=== PATIENT | female | born 1990 | race Caucasian/White ===

== ENCOUNTER 2018-05-01 19:55 | Inpatient (IN) | payer MEDICAID ==
[~2018-05-01] VITALS: Ht 167.6 cm; Wt 112.0 kg
[~2018-05-01 19:55] MED LIST: CHLO100T24 PO; DIVA500T69 PO; LITH300T3 PO; RISP3 PO
[2018-05-01] MEDS ORDERED: TRAZ-147 PO (20:15)
[2018-05-01 20:24] LABS: BASOPHILS % (AUTO) 0.6 % (0.0-2.0); EOSINOPHILS % (AUTO) 1.3 % (1.0-6.0); HEMATOCRIT 37.2 % (36-46); HEMOGLOBIN 12.4 g/dL (12.0-16.0); LYMPHOCYTES % (AUTO) 22.8 % (22.0-44.0); MEAN CORPUSCULAR HEMOGLOBIN 26.7 pg (26.0-34.0); MEAN CORPUSCULAR HGB CONC 33.3 G/dL (31.0-37.0); MEAN CORPUSCULAR VOLUME 80 fL (80-100); MONOCYTES # (AUTO) 0.8 K/uL (0.1-1.0); MONOCYTES % (AUTO) 9.4 % (2.0-9.0); NEUTROPHILS # (AUTO) 5.7 K/uL (1.8-7.7); NEUTROPHILS % (AUTO) 65.9 % (40.0-70.0); PLATELET COUNT (AUTO) 370 K/uL (150-450); RED BLOOD CELL COUNT(AUTO) 4.63 MIL/uL (4.00-5.20); RED CELL DISTRIBUTION WIDTH 14.8 % (11.5-14.5)
[2018-05-01 20:39] LABS: ANION GAP 9 mmol/L (8-16); CALCIUM, TOTAL 8.2 mg/dL (8.8-10.5); CARBON DIOXIDE 22 mmol/L (22-29); CHLORIDE 109 mmol/L (98-107); CREATININE 0.85 mg/dL (0.60-1.30); GLOMERULAR FILTR. RATE CALC > 60 mL/min (>60); GLUCOSE,RANDOM 91 mg/dL (70-110); POTASSIUM 3.8 mmol/L (3.5-5.1); SODIUM SERUM 140 mmol/L (136-145); UREA NITROGEN, BLOOD 10 mg/dL (7-18)
[2018-05-01 20:42] LABS: AMPHET/METH SCREEN,URINE NEGATIVE (NEGATIVE); BARBITURATE SCREEN, URINE NEGATIVE (NEGATIVE); BENZODIAZEPINES SCREEN,URINE NEGATIVE (NEGATIVE); CANNABINOID SCREEN,URINE NEGATIVE (NEGATIVE); COCAINE SCREEN,URINE NEGATIVE (NEGATIVE); METHADONE SCREEN, URINE NEGATIVE (NEGATIVE); OPIATE SCREEN,URINE NEGATIVE (NEGATIVE); PHENCYCLIDINE SCREEN,URINE NEGATIVE (NEGATIVE)
[2018-05-01 20:45] LABS: LITHIUM < 0.20 mmol/L (0.60-1.20)
[2018-05-01 20:47] LABS: ALANINE AMINOTRANSFERASE 36 U/L (12-78); ALBUMIN 3.2 g/dL (3.4-5.0); ALKALINE PHOSPHATASE 74 U/L (46-116); ASPARTATE AMINOTRANSFERASE 22 U/L (15-37); BILIRUBIN,TOTAL 0.2 mg/dL (0.1-1.0); VALPROIC ACID 3 mcg/mL (50-100)
[2018-05-01] MEDS ORDERED: HALOPERIDOL 5 MG TABLET PO ONE (21:00)
[2018-05-01] MEDS ORDERED: DiphenhydrAMINE HCL 25 MG CAPSULE PO ONE (21:00)
[2018-05-01] MEDS ORDERED: LORazepam 2 MG TABLET PO ONE (21:00)
[2018-05-01] MEDS ORDERED: ACETAMINOPHEN 500 MG TABLET PO ONE (23:45)
[2018-05-02 00:40] VITALS: BP 120/65
[2018-05-02] MEDS: LORazepam 2 MG TABLET PO PRN (03:20)
[2018-05-02] MEDS: QUEtiapine FUMARATE 100 MG TABLET PO PRN (03:42)
[2018-05-02] MEDS ORDERED: DiphenhydrAMINE HCL 50 MG/ML VIAL IM ONE ×3 (04:00→14:15)
[2018-05-02] MEDS ORDERED: HALOPERIDOL LACTATE 5 MG/ML VIAL IM ONE ×3 (04:00→14:15)
[2018-05-02] MEDS ORDERED: LORazepam 2 MG/ML VIAL ONE (07:28)
[2018-05-02] MEDS ORDERED: LORazepam 2 MG/ML VIAL IM ONE ×2 (07:30→14:15)
[2018-05-02] MEDS ORDERED: RisperiDONE 3 MG TABLET PO ONE (12:00)
[2018-05-02] MEDS: RisperiDONE 3 MG TABLET PO SCH (20:10)
[2018-05-02] MEDS: TraZODone HCL 100 MG TABLET PO SCH (20:10)
[2018-05-02] MEDS: ZOLPIDEM TARTRATE 10 MG TABLET PO PRN (21:00)
[2018-05-03] MEDS: QUEtiapine FUMARATE 100 MG TABLET PO PRN (03:01)
[2018-05-03] MEDS ORDERED: HALOPERIDOL LACTATE 5 MG/ML VIAL IM ONE (06:00)
[2018-05-03] MEDS ORDERED: DiphenhydrAMINE HCL 50 MG/ML VIAL IM ONE (06:00)
[2018-05-03] MEDS ORDERED: LORazepam 2 MG/ML VIAL IM ONE (06:00)
[2018-05-03 06:01] VITALS: BP 123/98
[2018-05-03 08:17] VITALS: BP 100/72
[2018-05-03 09:12] LABS: CHOL/HDL RATIO 2.7 (3.9-5.7); FREE T4 (FREE THYROXINE) 1.08 ng/dL (0.76-1.46); THYROID STIMULATING HORMONE 0.91 uIU/mL (0.36-3.74)
[2018-05-03] MEDS ORDERED: LOPERAMIDE HCL 2 MG CAPSULE PO PRN (15:00)
[2018-05-03] MEDS ORDERED: MAG HYDROX/AL HYDROX/SIMETH ES 30 ML SUSPENSION UDCUP PO PRN (15:00)
[2018-05-03] MEDS ORDERED: TUBERCULIN, PURIFIED PROTEIN DERIVATIVE 5 TU/0.1 ML SYG ID ONE (15:00)
[2018-05-03] MEDS ORDERED: PROMETHAZINE HCL 25 MG TABLET PO PRN (15:00)
[2018-05-03] MEDS ORDERED: GuaiFENesin/D-METHORPHAN [SUGAR-FREE] 200-20MG/10 ML SYRUP UDCUP PO PRN (15:00)
[2018-05-03] MEDS ORDERED: MAGNESIUM HYDROXIDE SUSPENSION 30 ML UDCUP PO PRN (15:00)
[2018-05-03] MEDS ORDERED: RisperiDONE 1 MG TABLET PO PRN (15:30)
[2018-05-03] MEDS: LORazepam 2 MG TABLET PO PRN (15:47)
[2018-05-03 16:00] VITALS: BP 121/74
[2018-05-03] MEDS: THIAMINE HCL 100 MG TABLET PO SCH (16:17)
[2018-05-03] MEDS: DIVALPROEX SODIUM 500 MG ER TABLET PO SCH (20:32)
[2018-05-03] MEDS: TraZODone HCL 100 MG TABLET PO SCH (20:32)
[2018-05-03] MEDS: LITHIUM CARBONATE 300 MG CAPSULE PO SCH (20:33)
[2018-05-03] MEDS: RisperiDONE 3 MG TABLET PO SCH (20:33)
[2018-05-03] MEDS: PRAZOSIN HCL 1 MG CAPSULE PO SCH (20:33)
[2018-05-03] MEDS: ZOLPIDEM TARTRATE 10 MG TABLET PO PRN (21:37)
[2018-05-04 03:31] VITALS: BP 120/70
[2018-05-04] MEDS: ACETAMINOPHEN 325 MG TABLET PO PRN (04:11)
[2018-05-04 08:02] VITALS: BP 134/74
[2018-05-04] MEDS: THIAMINE HCL 100 MG TABLET PO SCH ×2 (08:02→16:20)
[2018-05-04] MEDS: MULTIVITAMINS WITH MINERALS, THERAPEUTIC TABLET PO SCH (08:02)
[2018-05-04] MEDS: NALTREXONE HCL 50 MG TABLET PO SCH (08:02)
[2018-05-04] MEDS: FOLIC ACID 1 MG TABLET PO SCH (08:02)
[2018-05-04] MEDS: LORazepam 2 MG TABLET PO PRN ×2 (09:15→13:18)
[2018-05-04 16:04] VITALS: BP 115/79
[2018-05-04] MEDS: LORazepam 1 MG TABLET PO PRN (16:20)
[2018-05-04] MEDS: HydrOXYzine PAMOATE 50 MG CAPSULE PO PRN (16:20)
[2018-05-04 20:16] VITALS: BP 124/72
[2018-05-04] MEDS: LITHIUM CARBONATE 300 MG CAPSULE PO SCH (20:18)
[2018-05-04] MEDS: DIVALPROEX SODIUM 500 MG ER TABLET PO SCH (20:19)
[2018-05-04] MEDS: RisperiDONE 3 MG TABLET PO SCH (20:19)
[2018-05-04] MEDS: TraZODone HCL 100 MG TABLET PO SCH (20:19)
[2018-05-04] MEDS: PRAZOSIN HCL 1 MG CAPSULE PO SCH (20:19)
[2018-05-04] MEDS: ZOLPIDEM TARTRATE 10 MG TABLET PO PRN (22:53)
[2018-05-05] MEDS ORDERED: LORazepam 2 MG/ML VIAL IM ONE (03:30)
[2018-05-05] MEDS ORDERED: DiphenhydrAMINE HCL 50 MG/ML VIAL IM ONE (03:30)
[2018-05-05] MEDS ORDERED: HALOPERIDOL LACTATE 5 MG/ML VIAL IM ONE (03:30)
[2018-05-05 06:30] VITALS: BP 106/72
[2018-05-05 08:06] VITALS: BP 136/83
[2018-05-05 08:14] LABS: LITHIUM 0.44 mmol/L (0.60-1.20)
[2018-05-05] MEDS: FOLIC ACID 1 MG TABLET PO SCH (09:01)
[2018-05-05] MEDS: NALTREXONE HCL 50 MG TABLET PO SCH (09:01)
[2018-05-05] MEDS: MULTIVITAMINS WITH MINERALS, THERAPEUTIC TABLET PO SCH (09:01)
[2018-05-05] MEDS: THIAMINE HCL 100 MG TABLET PO SCH ×2 (09:01→16:08)
[2018-05-05 16:01] VITALS: BP 118/92
[2018-05-05] MEDS: LORazepam 1 MG TABLET PO PRN (16:08)
[2018-05-05] MEDS: HydrOXYzine PAMOATE 50 MG CAPSULE PO PRN (16:08)
[2018-05-05] MEDS: DIVALPROEX SODIUM 500 MG ER TABLET PO SCH (20:02)
[2018-05-05] MEDS: RisperiDONE 3 MG TABLET PO SCH (20:02)
[2018-05-05] MEDS: TraZODone HCL 100 MG TABLET PO SCH (20:02)
[2018-05-05] MEDS: PRAZOSIN HCL 1 MG CAPSULE PO SCH (20:03)
[2018-05-05] MEDS: LITHIUM CARBONATE 600 MG CAPSULE PO SCH (20:03)
[2018-05-06] MEDS: ZOLPIDEM TARTRATE 10 MG TABLET PO PRN ×2 (00:16→20:18)
[2018-05-06 00:37] VITALS: BP 115/71
[2018-05-06] MEDS: MULTIVITAMINS WITH MINERALS, THERAPEUTIC TABLET PO SCH (08:12)
[2018-05-06] MEDS: THIAMINE HCL 100 MG TABLET PO SCH ×2 (08:12→16:09)
[2018-05-06] MEDS: NALTREXONE HCL 50 MG TABLET PO SCH (08:12)
[2018-05-06] MEDS: FOLIC ACID 1 MG TABLET PO SCH (08:12)
[2018-05-06] MEDS: HydrOXYzine PAMOATE 50 MG CAPSULE PO PRN (08:15)
[2018-05-06] MEDS: LORazepam 1 MG TABLET PO PRN ×2 (08:50→16:09)
[2018-05-06 09:10] VITALS: BP 122/60
[2018-05-06] MEDS: ACETAMINOPHEN 325 MG TABLET PO PRN (13:35)
[2018-05-06] MEDS ORDERED: LITH600 PO (16:14)
[2018-05-06] MEDS ORDERED: TRAZ-147 PO (16:14)
[2018-05-06] MEDS ORDERED: NALT50TA PO (16:14)
[2018-05-06] MEDS ORDERED: PRAZ1 PO (16:14)
[2018-05-06] MEDS ORDERED: RISP3 PO (16:14)
[2018-05-06] MEDS ORDERED: DIVA500T52 PO (16:14)
[2018-05-06 16:20] VITALS: BP 123/59
[2018-05-06] MEDS ORDERED: TUBERCULIN, PURIFIED PROTEIN DERIVATIVE 5 TU/0.1 ML SYG ID ONE (19:45)
[2018-05-06] MEDS: LITHIUM CARBONATE 600 MG CAPSULE PO SCH (20:18)
[2018-05-06] MEDS: PRAZOSIN HCL 1 MG CAPSULE PO SCH (20:18)
[2018-05-06] MEDS: DIVALPROEX SODIUM 500 MG ER TABLET PO SCH (20:18)
[2018-05-06] MEDS: TraZODone HCL 100 MG TABLET PO SCH (20:18)
[2018-05-06] MEDS: RisperiDONE 3 MG TABLET PO SCH (20:18)
[2018-05-06] MEDS ORDERED: BISACODYL 5 MG EC TABLET PO PRN (23:15)
[2018-05-06] MEDS ORDERED: DOCUSATE SODIUM 250 MG CAPSULE PO PRN (23:15)
[2018-05-06] MEDS ORDERED: LACTULOSE 20 GM/30 ML SOLUTION UDCUP PO PRN (23:15)
[2018-05-07 04:18] VITALS: BP 132/77
[2018-05-07 08:00] VITALS: BP 119/65
[2018-05-07] MEDS: THIAMINE HCL 100 MG TABLET PO SCH (09:45)
[2018-05-07] MEDS: MULTIVITAMINS WITH MINERALS, THERAPEUTIC TABLET PO SCH (09:45)
[2018-05-07] MEDS: FOLIC ACID 1 MG TABLET PO SCH (09:45)
[2018-05-07] MEDS: NALTREXONE HCL 50 MG TABLET PO SCH (09:45)
== END 2018-05-07 10:30 | disposition home or self-care (01) | DRG 750 ==
LOC: EMS 19:56 → B3A 22:00
PROVIDERS: ADMIT Psychiatry & Neurology Child & Adolescent Psychiatry; ATTEND Psychiatry & Neurology Psychiatry
DX: F25.1 Schizoaffective disorder, depressive type (principal); R45.851 Suicidal ideations; E11.9 Type 2 diabetes mellitus without complications; E66.9 Obesity, unspecified; F12.90 Cannabis use, unspecified, uncomplicated; F31.9 Bipolar disorder, unspecified; F41.9 Anxiety disorder, unspecified; Z91.19 Patient's noncompliance with other medical treatment and regimen; Z79.899 Other long term (current) drug therapy
CPT/HCPCS: 83036; 84439; 84443; 99285; G0480; J1200; J1630; J2060

== ENCOUNTER 2020-11-21 17:45 | Inpatient (IN) | payer MEDICAID, OTHER ==
[~2020-11-21] VITALS: Ht 167.6 cm; Wt 124.3 kg
[~2020-11-21 17:45] MED LIST changes: -CHLO100T24 PO; -DIVA500T69 PO; +DSS100 PO; +LAMO25TA66 PO; -LITH300T3 PO; +OMEP20 PO; +OXCA300T57 PO; +PROP10TA73 PO; -RISP3 PO; +TOPI100T37 PO
[2020-11-21] MEDS ORDERED: HALOPERIDOL LACTATE 5 MG/ML VIAL IM ONE (20:45)
[2020-11-21] MEDS ORDERED: DiphenhydrAMINE HCL 50 MG/ML VIAL IM ONE (20:45)
[2020-11-21] MEDS ORDERED: LORazepam 2 MG/ML VIAL IM ONE (20:45)
[2020-11-21] MEDS ORDERED: CHLO100T31 PO (21:08)
[2020-11-22] MEDS ORDERED: LORazepam 2 MG/ML VIAL IM ONE ×2 (01:00→04:00)
[2020-11-22] MEDS ORDERED: HALOPERIDOL LACTATE 5 MG/ML VIAL IM ONE (01:00)
[2020-11-22 01:45] LABS: AMPHET/METH SCREEN,URINE NEGATIVE (NEGATIVE); BARBITURATE SCREEN, URINE NEGATIVE (NEGATIVE); BENZODIAZEPINES SCREEN,URINE POSITIVE (NEGATIVE); CANNABINOID SCREEN,URINE POSITIVE (NEGATIVE); COCAINE SCREEN,URINE NEGATIVE (NEGATIVE); METHADONE SCREEN, URINE NEGATIVE (NEGATIVE); OPIATE SCREEN,URINE NEGATIVE (NEGATIVE)
[2020-11-22 01:50] LABS: PHENCYCLIDINE SCREEN,URINE NEGATIVE (NEGATIVE)
[2020-11-22 02:54] LABS: COVID AG,FIA SOURCE NASOPHARYNGEAL
[2020-11-22 03:06] LABS: APPEARANCE,URINE CLEAR (CLEAR); BILIRUBIN,URINE NEGATIVE (NEGATIVE); GLUCOSE, URINE (UA) NEGATIVE (NEGATIVE); KETONES,URINE NEGATIVE (NEGATIVE); LEUKOCYTE ESTERASE ,URINE NEGATIVE (NEGATIVE); NITRATE,URINE NEGATIVE (NEGATIVE); OCCULT BLOOD,URINE NEGATIVE (NEGATIVE); PH,URINE 6.5 (5.0-8.0); PROTEIN,URINE NEGATIVE (NEGATIVE); UROBILINOGEN,URINE 0.2 mg/dL (<=1.0)
[2020-11-22] MEDS ORDERED: DiphenhydrAMINE HCL 50 MG/ML VIAL IM ONE (04:00)
[2020-11-22] MEDS: OLANZapine 5 MG RAPDIS TABLET PO PRN ×2 (04:05→09:00)
[2020-11-22] MEDS: LORazepam 2 MG TABLET PO PRN (09:00)
[2020-11-22 12:37] VITALS: BP 127/74
[2020-11-22] MEDS ORDERED: DOCU-275 PO (13:06)
[2020-11-22] MEDS ORDERED: PNEUMOCOCCAL VACCINE POLYVALENT 0.5 ML VIAL [PPSV23] IM ONE (13:15)
[2020-11-22] MEDS ORDERED: ALBUTEROL SULFATE HFA 90 MCG/PUFF 8 GM INHALER IH PRN (15:15)
[2020-11-22] MEDS ORDERED: ACETAMINOPHEN 325 MG TABLET PO PRN (15:15)
[2020-11-22] MEDS ORDERED: IBUPROFEN 400 MG TABLET PO PRN (15:15)
[2020-11-22] MEDS ORDERED: GuaiFENesin/D-METHORPHAN [SUGAR-FREE] 200-20MG/10 ML SYRUP UDCUP PO PRN ×2 (15:15→16:15)
[2020-11-22] MEDS ORDERED: PETROLATUM,WHITE 28 GM JELLY TP PRN (15:15)
[2020-11-22] MEDS ORDERED: MAGNESIUM HYDROXIDE SUSPENSION 30 ML UDCUP PO PRN ×2 (15:15→16:15)
[2020-11-22] MEDS ORDERED: ONDANSETRON HCL 4 MG TABLET PO PRN (15:15)
[2020-11-22] MEDS ORDERED: DOCUSATE SODIUM 100 MG CAPSULE PO PRN (15:15)
[2020-11-22] MEDS ORDERED: CloNIDine HCL 0.1 MG TABLET PO PRN (15:15)
[2020-11-22] MEDS ORDERED: NICOTINE 14 MG/24 HOUR PATCH TD PRN (15:15)
[2020-11-22] MEDS ORDERED: MAG HYDROX/AL HYDROX/SIMETH ES 30 ML SUSPENSION UDCUP PO PRN ×2 (15:15→16:15)
[2020-11-22] MEDS ORDERED: LOPERAMIDE HCL 2 MG CAPSULE PO PRN ×2 (15:15→16:15)
[2020-11-22 16:01] VITALS: BP 128/75
[2020-11-22] MEDS ORDERED: TUBERCULIN, PURIFIED PROTEIN DERIVATIVE 5 TU/0.1 ML SYRINGE ID ONE (16:15)
[2020-11-22] MEDS ORDERED: PALIPERIDONE PALMITATE 234 MG/1.5 ML SYRINGE IM ONE (16:15)
[2020-11-22] MEDS ORDERED: HydrOXYzine PAMOATE 50 MG CAPSULE PO PRN (16:15)
[2020-11-22] MEDS ORDERED: PROMETHAZINE HCL 25 MG TABLET PO PRN (16:15)
[2020-11-22] MEDS: TOPIRAMATE 100 MG TABLET PO SCH ×2 (17:00→17:23)
[2020-11-22] MEDS: LamoTRIgine 25 MG TABLET PO SCH ×2 (17:00→17:23)
[2020-11-22] MEDS: THIAMINE 100 MG TABLET PO SCH ×2 (17:00→17:23)
[2020-11-22] MEDS: PROPRANOLOL HCL 10 MG TABLET PO SCH ×2 (17:00→17:24)
[2020-11-22] MEDS: OXcarbazepine 300 MG TABLET PO SCH (17:23)
[2020-11-22] MEDS: ACETAMINOPHEN 325 MG TABLET PO PRN (19:50)
[2020-11-22] MEDS: OLANZapine 5 MG RAPDIS TABLET PO SCH (20:16)
[2020-11-23 02:24] VITALS: BP 140/85
[2020-11-23] MEDS: LORazepam 2 MG TABLET PO PRN ×2 (05:27→10:42)
[2020-11-23 08:26] VITALS: BP 136/86
[2020-11-23] MEDS: OXcarbazepine 300 MG TABLET PO SCH ×2 (08:48→16:49)
[2020-11-23] MEDS: THIAMINE 100 MG TABLET PO SCH ×2 (08:48→16:53)
[2020-11-23] MEDS: OMEGA-3/DHA/EPA/FISH OIL 1,000 MG CAPSULE PO SCH (08:48)
[2020-11-23] MEDS: LamoTRIgine 25 MG TABLET PO SCH ×2 (08:49→16:49)
[2020-11-23] MEDS: NALTREXONE HCL 50 MG TABLET PO SCH (08:49)
[2020-11-23] MEDS: MULTIVITAMINS WITH MINERALS, THERAPEUTIC TABLET PO SCH (08:49)
[2020-11-23] MEDS: TOPIRAMATE 100 MG TABLET PO SCH ×2 (08:49→16:54)
[2020-11-23] MEDS: PROPRANOLOL HCL 10 MG TABLET PO SCH ×3 (08:49→16:53)
[2020-11-23] MEDS: FOLIC ACID 1 MG TABLET PO SCH (08:51)
[2020-11-23 16:52] VITALS: BP 112/69
[2020-11-23] MEDS: OLANZapine 5 MG RAPDIS TABLET PO SCH (20:06)
[2020-11-23] MEDS: ChlorproMAZINE HCL 100 MG TABLET PO SCH (20:06)
[2020-11-24 00:24] VITALS: BP 102/69
[2020-11-24] MEDS: LORazepam 2 MG TABLET PO PRN ×3 (00:48→22:50)
[2020-11-24] MEDS: ZOLPIDEM TARTRATE 10 MG TABLET PO PRN (00:48)
[2020-11-24 09:14] VITALS: BP 100/72
[2020-11-24] MEDS: ChlorproMAZINE HCL 25 MG TABLET PO SCH ×2 (09:33→16:28)
[2020-11-24] MEDS: TOPIRAMATE 100 MG TABLET PO SCH ×2 (09:33→16:33)
[2020-11-24] MEDS: NALTREXONE HCL 50 MG TABLET PO SCH (09:33)
[2020-11-24] MEDS: MULTIVITAMINS WITH MINERALS, THERAPEUTIC TABLET PO SCH (09:33)
[2020-11-24] MEDS: OMEGA-3/DHA/EPA/FISH OIL 1,000 MG CAPSULE PO SCH (09:34)
[2020-11-24] MEDS: PROPRANOLOL HCL 10 MG TABLET PO SCH ×3 (09:34→16:33)
[2020-11-24] MEDS: OXcarbazepine 300 MG TABLET PO SCH ×2 (09:34→16:28)
[2020-11-24] MEDS: FOLIC ACID 1 MG TABLET PO SCH (09:34)
[2020-11-24] MEDS: THIAMINE 100 MG TABLET PO SCH ×2 (09:34→16:28)
[2020-11-24] MEDS: LamoTRIgine 25 MG TABLET PO SCH ×2 (10:14→16:31)
[2020-11-24 16:09] VITALS: BP 125/78
[2020-11-24] MEDS: ACETAMINOPHEN 325 MG TABLET PO PRN (19:59)
[2020-11-24] MEDS: ChlorproMAZINE HCL 100 MG TABLET PO SCH (20:00)
[2020-11-24] MEDS: OLANZapine 5 MG RAPDIS TABLET PO SCH (21:00)
[2020-11-25 00:34] VITALS: BP 120/72
[2020-11-25] MEDS: ZOLPIDEM TARTRATE 10 MG TABLET PO PRN (01:30)
[2020-11-25] MEDS: LORazepam 2 MG TABLET PO PRN ×3 (03:00→16:01)
[2020-11-25 05:35] VITALS: BP 118/70
[2020-11-25] MEDS: ACETAMINOPHEN 325 MG TABLET PO PRN (05:48)
[2020-11-25 08:14] VITALS: BP 144/94
[2020-11-25] MEDS: OXcarbazepine 300 MG TABLET PO SCH ×2 (08:38→16:00)
[2020-11-25] MEDS: LamoTRIgine 25 MG TABLET PO SCH ×2 (08:39→16:01)
[2020-11-25] MEDS: OMEGA-3/DHA/EPA/FISH OIL 1,000 MG CAPSULE PO SCH (08:39)
[2020-11-25] MEDS: THIAMINE 100 MG TABLET PO SCH ×2 (08:39→16:01)
[2020-11-25] MEDS: MULTIVITAMINS WITH MINERALS, THERAPEUTIC TABLET PO SCH (08:39)
[2020-11-25] MEDS: NALTREXONE HCL 50 MG TABLET PO SCH (08:39)
[2020-11-25] MEDS: FOLIC ACID 1 MG TABLET PO SCH (08:39)
[2020-11-25] MEDS: ChlorproMAZINE HCL 25 MG TABLET PO SCH ×2 (08:40→17:00)
[2020-11-25] MEDS: PROPRANOLOL HCL 10 MG TABLET PO SCH ×3 (08:45→16:01)
[2020-11-25] MEDS: TOPIRAMATE 100 MG TABLET PO SCH ×2 (08:46→16:01)
[2020-11-25] MEDS: IBUPROFEN 400 MG TABLET PO SCH ×2 (12:34→16:01)
[2020-11-25] MEDS: OLANZapine 5 MG RAPDIS TABLET PO PRN (16:02)
[2020-11-25 16:35] VITALS: BP 119/70
[2020-11-25] MEDS: ChlorproMAZINE HCL 100 MG TABLET PO SCH (20:05)
[2020-11-25] MEDS: OLANZapine 5 MG RAPDIS TABLET PO SCH (21:00)
[2020-11-25 21:24] VITALS: BP 118/73
[2020-11-26 01:04] VITALS: BP 111/73
[2020-11-26] MEDS: LORazepam 2 MG TABLET PO PRN ×2 (01:53→08:16)
[2020-11-26] MEDS ORDERED: TOPI100T37 PO (07:59)
[2020-11-26] MEDS ORDERED: LAMO25TA66 PO (07:59)
[2020-11-26] MEDS ORDERED: OLAN5TAB30 PO (07:59)
[2020-11-26] MEDS ORDERED: NALT50TA PO (07:59)
[2020-11-26] MEDS ORDERED: OMEG-135 PO (07:59)
[2020-11-26] MEDS ORDERED: PROP10TA72 PO (07:59)
[2020-11-26] MEDS ORDERED: OXCA300T57 PO (07:59)
[2020-11-26] MEDS: MULTIVITAMINS WITH MINERALS, THERAPEUTIC TABLET PO SCH (08:14)
[2020-11-26] MEDS: IBUPROFEN 400 MG TABLET PO SCH (08:14)
[2020-11-26] MEDS: THIAMINE 100 MG TABLET PO SCH (08:14)
[2020-11-26] MEDS: OMEGA-3/DHA/EPA/FISH OIL 1,000 MG CAPSULE PO SCH (08:14)
[2020-11-26] MEDS: FOLIC ACID 1 MG TABLET PO SCH (08:14)
[2020-11-26] MEDS: LamoTRIgine 25 MG TABLET PO SCH (08:15)
[2020-11-26] MEDS: OXcarbazepine 300 MG TABLET PO SCH (08:16)
[2020-11-26] MEDS: ChlorproMAZINE HCL 25 MG TABLET PO SCH (08:17)
[2020-11-26 08:19] VITALS: BP 123/75
[2020-11-26] MEDS: PROPRANOLOL HCL 10 MG TABLET PO SCH (08:19)
[2020-11-26] MEDS: TOPIRAMATE 100 MG TABLET PO SCH (08:20)
[2020-11-26] MEDS: NALTREXONE HCL 50 MG TABLET PO SCH (08:20)
[2020-11-26] MEDS ORDERED: PALIPERIDONE PALMITATE 156 MG/ML SYRINGE IM ONE (09:00)
[2020-11-26] MEDS ORDERED: CHLO25TA47 PO (10:25)
[2020-11-26] MEDS ORDERED: NALT50TA6 PO (10:26)
[2020-11-26] MEDS ORDERED: OLAN5TAB40 PO (10:27)
== END 2020-11-26 10:50 | disposition home or self-care (01) | DRG 750 ==
LOC: EMS 17:45 → B3A 11-22 11:09
PROVIDERS: ADMIT Psychiatry & Neurology Psychiatry; ATTEND Psychiatry & Neurology Psychiatry
DX: F25.0 Schizoaffective disorder, bipolar type (principal); E66.9 Obesity, unspecified; I10 Essential (primary) hypertension; J45.909 Unspecified asthma, uncomplicated; K21.9 Gastro-esophageal reflux disease without esophagitis; R45.851 Suicidal ideations; Z20.828 Contact with and (suspected) exposure to other viral communicable diseases; Z78.1 Physical restraint status; Z79.899 Other long term (current) drug therapy; Z91.5 Personal history of self-harm; Z68.41 Body mass index [BMI] 40.0-44.9, adult
CPT/HCPCS: 87426; 99291; J1200; J1630; J2060

== ENCOUNTER 2020-11-27 18:24 | Inpatient (IN) | payer MEDICAID, OTHER ==
[~2020-11-27] VITALS: Ht 170.2 cm; Wt 123.4 kg
[~2020-11-27 18:24] MED LIST changes: +CHLO100T31 PO; +CHLO25TA47 PO; -DSS100 PO; +NALT50TA6 PO; +OLAN5TAB40 PO; -OMEP20 PO; -PROP10TA73 PO
[2020-11-27] MEDS ORDERED: HALOPERIDOL LACTATE 5 MG/ML VIAL IM ONE ×2 (20:15→22:30)
[2020-11-27] MEDS ORDERED: LORazepam 2 MG/ML VIAL IM ONE ×2 (20:15→22:30)
[2020-11-27] MEDS ORDERED: DiphenhydrAMINE HCL 50 MG/ML VIAL IM ONE ×2 (20:15→22:30)
[2020-11-27 20:33] LABS: BASOPHILS % (AUTO) 0.5 % (0.0-2.0); HEMATOCRIT 38.2 % (36-46); HEMOGLOBIN 12.5 g/dL (12.0-16.0); LYMPHOCYTES # (AUTO) 1.8 K/uL (1.0-4.8); LYMPHOCYTES % (AUTO) 24.4 % (22.0-44.0); MEAN CORPUSCULAR HEMOGLOBIN 26.4 pg (26.0-34.0); MEAN CORPUSCULAR HGB CONC 32.7 G/dL (31.0-37.0); MEAN CORPUSCULAR VOLUME 81 fL (80-100); MONOCYTES # (AUTO) 0.6 K/uL (0.1-1.0); MONOCYTES % (AUTO) 8.5 % (2.0-9.0); NEUTROPHILS # (AUTO) 4.8 K/uL (1.8-7.7); NEUTROPHILS % (AUTO) 65.6 % (40.0-70.0); PLATELET COUNT (AUTO) 322 K/uL (150-450); RED BLOOD CELL COUNT(AUTO) 4.72 MIL/uL (4.00-5.20); RED CELL DISTRIBUTION WIDTH 15.8 % (11.5-14.5)
[2020-11-27 20:40] LABS: ANION GAP 11 mmol/L (8-16); CALCIUM, TOTAL 8.6 mg/dL (8.8-10.5); CARBON DIOXIDE 21 mmol/L (22-29); CHLORIDE 104 mmol/L (98-107); CREATININE 0.86 mg/dL (0.60-1.30); GLOMERULAR FILTR. RATE CALC > 60 mL/min (>60); GLUCOSE,RANDOM 119 mg/dL (70-110); POTASSIUM 3.7 mmol/L (3.5-5.1); SODIUM SERUM 136 mmol/L (136-145); UREA NITROGEN, BLOOD 10 mg/dL (7-18)
[2020-11-27 20:53] LABS: ALANINE AMINOTRANSFERASE 46 U/L (12-78); ALBUMIN 3.5 g/dL (3.4-5.0); ALKALINE PHOSPHATASE 65 U/L (46-116); ASPARTATE AMINOTRANSFERASE 27 U/L (15-37); BILIRUBIN,TOTAL 0.3 mg/dL (0.1-1.0); HCG,QUANTITATIVE < 1 mIU/mL (0-6); TOTAL PROTEIN, SERUM 7.4 g/dL (6.4-8.2)
[2020-11-27] MEDS ORDERED: OLANZapine 5 MG RAPDIS TABLET PO PRN (21:30)
[2020-11-27 23:38] LABS: COVID AG,FIA SOURCE NASOPHARYNGEAL
[2020-11-28 01:52] VITALS: BP 110/67
[2020-11-28] MEDS ORDERED: INFLUENZA VIRUS VACCINE QVS 2020-21 (6MO+)/PF 60 MCG/0.5 ML SYRINGE IM ONE (02:45)
[2020-11-28] MEDS ORDERED: PNEUMOCOCCAL VACCINE POLYVALENT 0.5 ML VIAL [PPSV23] IM ONE (02:45)
[2020-11-28] MEDS ORDERED: DiphenhydrAMINE HCL 50 MG/ML VIAL IM ONE (05:00)
[2020-11-28] MEDS ORDERED: HALOPERIDOL LACTATE 5 MG/ML VIAL IM ONE (05:00)
[2020-11-28] MEDS ORDERED: LORazepam 2 MG/ML VIAL IM ONE (05:00)
[2020-11-28] MEDS ORDERED: TOPIRAMATE 100 MG TABLET PO SCH (09:00)
[2020-11-28] MEDS ORDERED: OXcarbazepine 300 MG TABLET PO SCH (09:00)
[2020-11-28] MEDS ORDERED: LamoTRIgine 25 MG TABLET PO SCH (09:00)
[2020-11-28] MEDS ORDERED: MAG HYDROX/AL HYDROX/SIMETH ES 30 ML SUSPENSION UDCUP PO PRN (09:00)
[2020-11-28] MEDS ORDERED: PROMETHAZINE HCL 25 MG TABLET PO PRN (09:00)
[2020-11-28] MEDS ORDERED: MAGNESIUM HYDROXIDE SUSPENSION 30 ML UDCUP PO PRN (09:00)
[2020-11-28] MEDS ORDERED: LOPERAMIDE HCL 2 MG CAPSULE PO PRN (09:00)
[2020-11-28] MEDS ORDERED: GuaiFENesin/D-METHORPHAN [SUGAR-FREE] 200-20MG/10 ML SYRUP UDCUP PO PRN (09:00)
[2020-11-28] MEDS: NALTREXONE HCL 50 MG TABLET PO SCH (09:24)
[2020-11-28] MEDS: OMEGA-3/DHA/EPA/FISH OIL 1,000 MG CAPSULE PO SCH (09:24)
[2020-11-28] MEDS: MULTIVITAMINS WITH MINERALS, THERAPEUTIC TABLET PO SCH (09:24)
[2020-11-28] MEDS: FOLIC ACID 1 MG TABLET PO SCH (09:24)
[2020-11-28] MEDS: THIAMINE 100 MG TABLET PO SCH ×2 (09:24→16:15)
[2020-11-28] MEDS: LORazepam 2 MG TABLET PO PRN ×2 (09:52→17:56)
[2020-11-28 12:45] VITALS: BP 118/82
[2020-11-28 16:07] VITALS: BP 124/80
[2020-11-28] MEDS: CarBAMazepine 200 MG TABLET PO SCH (16:15)
[2020-11-28] MEDS: HydrOXYzine PAMOATE 50 MG CAPSULE PO PRN (17:56)
[2020-11-28] MEDS: ZOLPIDEM TARTRATE 10 MG TABLET PO PRN (20:35)
[2020-11-28] MEDS: OLANZapine 5 MG RAPDIS TABLET PO SCH (20:36)
[2020-11-28] MEDS ORDERED: OLANZapine 5 MG RAPDIS TABLET PO SCH (21:00)
[2020-11-29 00:20] VITALS: BP 122/76
[2020-11-29] MEDS: LORazepam 2 MG TABLET PO PRN ×3 (00:56→16:20)
[2020-11-29] MEDS: HydrOXYzine PAMOATE 50 MG CAPSULE PO PRN ×2 (00:56→20:10)
[2020-11-29] MEDS: OMEGA-3/DHA/EPA/FISH OIL 1,000 MG CAPSULE PO SCH (08:04)
[2020-11-29] MEDS: MULTIVITAMINS WITH MINERALS, THERAPEUTIC TABLET PO SCH (08:04)
[2020-11-29] MEDS: THIAMINE 100 MG TABLET PO SCH ×2 (08:04→16:01)
[2020-11-29] MEDS: FOLIC ACID 1 MG TABLET PO SCH (08:04)
[2020-11-29 08:05] VITALS: BP 117/67
[2020-11-29] MEDS: ACETAMINOPHEN 325 MG TABLET PO PRN ×2 (08:12→20:11)
[2020-11-29] MEDS: OLANZapine 5 MG RAPDIS TABLET PO SCH ×2 (08:13→12:40)
[2020-11-29] MEDS: NALTREXONE HCL 50 MG TABLET PO SCH (08:13)
[2020-11-29] MEDS: CarBAMazepine 200 MG TABLET PO SCH ×4 (09:00→16:01)
[2020-11-29] MEDS ORDERED: FLUoxetine HCL 20 MG CAPSULE PO SCH (09:00)
[2020-11-29] MEDS ORDERED: OMEG-135 PO (14:37)
[2020-11-29] MEDS ORDERED: PALI117D IM (14:37)
[2020-11-29] MEDS ORDERED: NALT50TA PO (14:37)
[2020-11-29] MEDS ORDERED: CARB200T6 PO (14:37)
[2020-11-29 16:06] VITALS: BP 120/65
[2020-11-29 17:47] LABS: APPEARANCE,URINE CLEAR (CLEAR); BILIRUBIN,URINE NEGATIVE (NEGATIVE); GLUCOSE, URINE (UA) NEGATIVE (NEGATIVE); KETONES,URINE NEGATIVE (NEGATIVE); LEUKOCYTE ESTERASE ,URINE NEGATIVE (NEGATIVE); NITRATE,URINE NEGATIVE (NEGATIVE); OCCULT BLOOD,URINE NEGATIVE (NEGATIVE); PROTEIN,URINE NEGATIVE (NEGATIVE); UROBILINOGEN,URINE 0.2 mg/dL (<=1.0)
[2020-11-30] MEDS: LORazepam 2 MG TABLET PO PRN (01:42)
[2020-11-30] MEDS: ZOLPIDEM TARTRATE 10 MG TABLET PO PRN (01:42)
[2020-11-30 01:45] VITALS: BP 115/67
[2020-11-30] MEDS: FOLIC ACID 1 MG TABLET PO SCH (08:19)
[2020-11-30] MEDS: CarBAMazepine 200 MG TABLET PO SCH (08:19)
[2020-11-30] MEDS: OMEGA-3/DHA/EPA/FISH OIL 1,000 MG CAPSULE PO SCH (08:19)
[2020-11-30] MEDS: MULTIVITAMINS WITH MINERALS, THERAPEUTIC TABLET PO SCH (08:19)
[2020-11-30] MEDS: THIAMINE 100 MG TABLET PO SCH (08:19)
[2020-11-30] MEDS: NALTREXONE HCL 50 MG TABLET PO SCH (08:19)
[2020-11-30 08:29] VITALS: BP 111/78
== END 2020-11-30 11:00 | disposition home or self-care (01) | DRG 750 ==
LOC: EMS 18:24 → B3A 21:28 → UNDOADMIN 21:28
PROVIDERS: ADMIT Psychiatry & Neurology Psychiatry; ATTEND Psychiatry & Neurology Psychiatry
DX: F25.9 Schizoaffective disorder, unspecified (principal); R45.851 Suicidal ideations; I10 Essential (primary) hypertension; J45.909 Unspecified asthma, uncomplicated; K21.9 Gastro-esophageal reflux disease without esophagitis; G43.909 Migraine, unspecified, not intractable, without status migrainosus; Z88.8 Allergy status to other drugs, medicaments and biological substances; F31.9 Bipolar disorder, unspecified; F39 Unspecified mood [affective] disorder; Z20.828 Contact with and (suspected) exposure to other viral communicable diseases; Z28.21 Immunization not carried out because of patient refusal
CPT/HCPCS: 87081; 87426; 99291; G0480; J1200; J1630; J2060

== ENCOUNTER 2022-09-04 16:24 | Inpatient (IN) | payer MEDICAID, OTHER ==
[~2022-09-04] VITALS: Ht 165.1 cm; Wt 122.9 kg
[~2022-09-04 16:24] MED LIST changes: +CARB200T6 PO; -CHLO100T31 PO; -CHLO25TA47 PO; -LAMO25TA66 PO; +NALT50TA PO; -NALT50TA6 PO; -OLAN5TAB40 PO; +OMEG-135 PO; -OXCA300T57 PO; +PALI117D IM; -TOPI100T37 PO
[2022-09-04 16:50] LABS: BASOPHILS % (AUTO) 0.4 % (0.0-2.0); EOSINOPHILS % (AUTO) 0.2 % (1.0-6.0); HEMATOCRIT 39.8 % (36-46); HEMOGLOBIN 13.2 g/dL (12.0-16.0); LYMPHOCYTES # (AUTO) 1.8 K/uL (1.0-4.8); LYMPHOCYTES % (AUTO) 15.2 % (22.0-44.0); MEAN CORPUSCULAR HEMOGLOBIN 26.7 pg (26.0-34.0); MEAN CORPUSCULAR HGB CONC 33.2 G/dL (31.0-37.0); MEAN CORPUSCULAR VOLUME 80 fL (80-100); MONOCYTES # (AUTO) 0.9 K/uL (0.1-1.0); MONOCYTES % (AUTO) 7.4 % (2.0-9.0); NEUTROPHILS # (AUTO) 9.1 K/uL (1.8-7.7); NEUTROPHILS % (AUTO) 76.8 % (40.0-70.0); PLATELET COUNT (AUTO) 405 K/uL (150-450); RED BLOOD CELL COUNT(AUTO) 4.95 MIL/uL (4.00-5.20); RED CELL DISTRIBUTION WIDTH 16.3 % (11.5-14.5)
[2022-09-04 16:51] LABS: COVID AG,FIA SOURCE NASOPHARYNGEAL
[2022-09-04 17:01] LABS: ANION GAP 7 mmol/L (8-16); CALCIUM, TOTAL 9.8 mg/dL (8.8-10.5); CARBON DIOXIDE 26 mmol/L (22-29); CHLORIDE 103 mmol/L (98-107); GLUCOSE,RANDOM 105 mg/dL (70-110); POTASSIUM 3.2 mmol/L (3.5-5.1); SODIUM SERUM 136 mmol/L (136-145); UREA NITROGEN, BLOOD 3 mg/dL (7-18)
[2022-09-04 17:05] LABS: GLOMERULAR FILTR. RATE CALC > 60 mL/min (>60)
[2022-09-04 17:28] LABS: ALANINE AMINOTRANSFERASE 32 U/L (12-78); ALBUMIN 3.8 g/dL (3.4-5.0); ALKALINE PHOSPHATASE 73 U/L (46-116); ASPARTATE AMINOTRANSFERASE 30 U/L (15-37); BILIRUBIN,TOTAL 0.5 mg/dL (0.1-1.0); HCG,QUANTITATIVE 69603 mIU/mL (0-6)
[2022-09-04] MEDS ORDERED: DiphenhydrAMINE HCL 50 MG/ML VIAL ONE (17:50)
[2022-09-04] MEDS ORDERED: HALOPERIDOL LACTATE 5 MG/ML VIAL ONE ×2 (17:50→17:51)
[2022-09-04] MEDS ORDERED: HALOPERIDOL LACTATE 5 MG/ML VIAL IM ONE ×2 (18:00)
[2022-09-04] MEDS ORDERED: LORazepam 2 MG TABLET PO PRN (20:15)
[2022-09-04 20:26] LABS: AMPHET/METH SCREEN,URINE NEGATIVE (NEGATIVE); BARBITURATE SCREEN, URINE NEGATIVE (NEGATIVE); BENZODIAZEPINES SCREEN,URINE NEGATIVE (NEGATIVE); CANNABINOID SCREEN,URINE NEGATIVE (NEGATIVE); COCAINE SCREEN,URINE NEGATIVE (NEGATIVE); METHADONE SCREEN, URINE NEGATIVE (NEGATIVE); OPIATE SCREEN,URINE NEGATIVE (NEGATIVE)
[2022-09-04 20:27] LABS: PHENCYCLIDINE SCREEN,URINE NEGATIVE (NEGATIVE)
[2022-09-04 20:32] LABS: APPEARANCE,URINE CLEAR (CLEAR); BILIRUBIN,URINE NEGATIVE (NEGATIVE); GLUCOSE, URINE (UA) NEGATIVE (NEGATIVE); KETONES,URINE NEGATIVE (NEGATIVE); LEUKOCYTE ESTERASE ,URINE NEGATIVE (NEGATIVE); NITRATE,URINE NEGATIVE (NEGATIVE); OCCULT BLOOD,URINE NEGATIVE (NEGATIVE); PROTEIN,URINE NEGATIVE (NEGATIVE); SPECIFIC GRAVITIY, URINE 1.003 (1.003-1.030); UROBILINOGEN,URINE <=1.0 mg/dL (<=1.0)
[2022-09-04 22:45] VITALS: BP 164/87
[2022-09-05 00:34] VITALS: BP 115/76
[2022-09-05] MEDS ORDERED: INFLUENZA VIRUS VACCINE QVS 2022-23 (6MO+)/PF 60 MCG/0.5 ML SYRINGE IM. ONE (01:30)
[2022-09-05] MEDS ORDERED: HALOPERIDOL LACTATE 5 MG/ML VIAL ONE (06:10)
[2022-09-05] MEDS ORDERED: HALOPERIDOL LACTATE 5 MG/ML VIAL IM ONE (06:15)
[2022-09-05 08:50] VITALS: BP 136/89
[2022-09-05] MEDS ORDERED: LORazepam 2 MG/ML VIAL ONE (09:02)
[2022-09-05] MEDS ORDERED: NICOTINE 14 MG/24 HOUR PATCH TD PRN (09:30)
[2022-09-05] MEDS ORDERED: PETROLATUM,WHITE 28 GM JELLY TP PRN (09:30)
[2022-09-05] MEDS ORDERED: ONDANSETRON HCL 4 MG TABLET PO PRN (09:30)
[2022-09-05] MEDS ORDERED: DOCUSATE SODIUM 100 MG CAPSULE PO PRN (09:30)
[2022-09-05] MEDS ORDERED: LOPERAMIDE HCL 2 MG CAPSULE PO PRN (09:30)
[2022-09-05] MEDS ORDERED: MAG HYDROX/AL HYDROX/SIMETH ES 30 ML SUSPENSION UDCUP PO PRN (09:30)
[2022-09-05] MEDS ORDERED: MAGNESIUM HYDROXIDE SUSPENSION 30 ML UDCUP PO PRN (09:30)
[2022-09-05] MEDS ORDERED: CloNIDine HCL 0.1 MG TABLET PO PRN (09:30)
[2022-09-05] MEDS: RisperiDONE 2 MG TABLET PO SCH ×2 (10:15→20:43)
[2022-09-05] MEDS ORDERED: CarBAMazepine 200 MG TABLET PO SCH (13:00)
[2022-09-05] MEDS ORDERED: LORazepam 2 MG/ML VIAL IM ONE (14:45)
[2022-09-05] MEDS: HALOPERIDOL 5 MG TABLET PO PRN (17:45)
[2022-09-05] MEDS: ZOLPIDEM TARTRATE 10 MG TABLET PO PRN (20:43)
[2022-09-05 20:46] VITALS: BP 119/74
[2022-09-05] MEDS: CarBAMazepine 200 MG TABLET PO SCH (20:50)
[2022-09-06] MEDS ORDERED: HALOPERIDOL LACTATE 5 MG/ML VIAL ONE (04:03)
[2022-09-06] MEDS ORDERED: LORazepam 2 MG/ML VIAL ONE (04:03)
[2022-09-06] MEDS ORDERED: LORazepam 2 MG/ML VIAL IM ONE (04:15)
[2022-09-06] MEDS ORDERED: HALOPERIDOL LACTATE 5 MG/ML VIAL IM ONE ×2 (04:15→14:45)
[2022-09-06] MEDS: CarBAMazepine 200 MG TABLET PO SCH ×3 (08:42→17:03)
[2022-09-06] MEDS: RisperiDONE 2 MG TABLET PO SCH ×2 (08:42→20:26)
[2022-09-06] MEDS: OMEGA-3/DHA/EPA/FISH OIL 1,000 MG CAPSULE PO SCH (08:42)
[2022-09-06 08:44] VITALS: BP 121/88
[2022-09-06] MEDS: HALOPERIDOL 5 MG TABLET PO PRN (10:26)
[2022-09-06] MEDS ORDERED: LAMO150T6 PO (11:57)
[2022-09-06] MEDS ORDERED: OXCA600T18 PO (11:57)
[2022-09-06] MEDS ORDERED: NORG1TAB69 PO (11:57)
[2022-09-06] MEDS ORDERED: FLUT16H NASAL (11:57)
[2022-09-06] MEDS: ACETAMINOPHEN 325 MG TABLET PO PRN (18:39)
[2022-09-06 21:17] VITALS: BP 105/50
[2022-09-06] MEDS: IBUPROFEN 400 MG TABLET PO PRN (21:17)
[2022-09-07 00:31] VITALS: BP 137/79
[2022-09-07 03:49] VITALS: BP 125/72
[2022-09-07] MEDS: ACETAMINOPHEN 325 MG TABLET PO PRN (03:52)
[2022-09-07] MEDS: HydrOXYzine PAMOATE 50 MG CAPSULE PO PRN ×2 (05:20→12:35)
[2022-09-07 08:00] VITALS: BP 132/74
[2022-09-07] MEDS: RisperiDONE 2 MG TABLET PO SCH ×2 (08:08→20:28)
[2022-09-07] MEDS: PRENATAL NO.137/IRON/FOLIC ACID TABLET PO SCH (08:08)
[2022-09-07] MEDS: OMEGA-3/DHA/EPA/FISH OIL 1,000 MG CAPSULE PO SCH (08:08)
[2022-09-07] MEDS: CarBAMazepine 200 MG TABLET PO SCH ×3 (08:08→16:13)
[2022-09-07] MEDS: HALOPERIDOL 5 MG TABLET PO PRN (08:52)
[2022-09-07] MEDS: GuaiFENesin/D-METHORPHAN [SUGAR-FREE] 200-20MG/10 ML SYRUP UDCUP PO PRN (17:29)
[2022-09-07] MEDS: ALBUTEROL SULFATE HFA 90 MCG/PUFF 8 GM INHALER IH PRN (17:30)
[2022-09-07] MEDS: FLUTICASONE PROPIONATE 50 MCG/SPRAY 16 GM NASAL SPRAY NASAL PRN (22:11)
[2022-09-08] MEDS: ZOLPIDEM TARTRATE 10 MG TABLET PO PRN ×2 (00:36→22:43)
[2022-09-08] MEDS: ACETAMINOPHEN 325 MG TABLET PO PRN (04:33)
[2022-09-08 07:03] VITALS: BP 128/67
[2022-09-08 07:08] VITALS: BP 118/66
[2022-09-08 07:58] LABS: BASOPHILS % (AUTO) 0.4 % (0.0-2.0); EOSINOPHILS % (AUTO) 1.5 % (1.0-6.0); HEMATOCRIT 35.1 % (36-46); HEMOGLOBIN 11.5 g/dL (12.0-16.0); LYMPHOCYTES # (AUTO) 1.6 K/uL (1.0-4.8); LYMPHOCYTES % (AUTO) 21.5 % (22.0-44.0); MEAN CORPUSCULAR HEMOGLOBIN 26.6 pg (26.0-34.0); MEAN CORPUSCULAR HGB CONC 32.7 G/dL (31.0-37.0); MEAN CORPUSCULAR VOLUME 81 fL (80-100); MONOCYTES # (AUTO) 0.5 K/uL (0.1-1.0); MONOCYTES % (AUTO) 7.3 % (2.0-9.0); NEUTROPHILS % (AUTO) 69.3 % (40.0-70.0); PLATELET COUNT (AUTO) 292 K/uL (150-450); RED BLOOD CELL COUNT(AUTO) 4.31 MIL/uL (4.00-5.20); RED CELL DISTRIBUTION WIDTH 15.7 % (11.5-14.5)
[2022-09-08 08:25] VITALS: BP 149/85
[2022-09-08] MEDS: CarBAMazepine 200 MG TABLET PO SCH ×3 (08:37→16:39)
[2022-09-08] MEDS: PRENATAL NO.137/IRON/FOLIC ACID TABLET PO SCH (08:37)
[2022-09-08] MEDS: RisperiDONE 2 MG TABLET PO SCH ×2 (08:37→20:38)
[2022-09-08] MEDS: OMEGA-3/DHA/EPA/FISH OIL 1,000 MG CAPSULE PO SCH (08:37)
[2022-09-08] MEDS: GuaiFENesin/D-METHORPHAN [SUGAR-FREE] 200-20MG/10 ML SYRUP UDCUP PO PRN (08:38)
[2022-09-08] MEDS: IBUPROFEN 400 MG TABLET PO PRN ×2 (08:38→16:41)
[2022-09-08] MEDS: FLUTICASONE PROPIONATE 50 MCG/SPRAY 16 GM NASAL SPRAY NASAL PRN (09:04)
[2022-09-08 09:38] VITALS: BP 134/74
[2022-09-08] MEDS: ALBUTEROL SULFATE HFA 90 MCG/PUFF 8 GM INHALER IH PRN ×2 (10:40→18:35)
[2022-09-08] MEDS: HydrOXYzine PAMOATE 50 MG CAPSULE PO PRN ×2 (12:34→20:48)
[2022-09-08 16:41] VITALS: BP 139/66
[2022-09-08 20:00] VITALS: BP 139/66
[2022-09-09] MEDS: HALOPERIDOL 5 MG TABLET PO PRN (01:23)
[2022-09-09] MEDS: HydrOXYzine PAMOATE 50 MG CAPSULE PO PRN ×3 (01:32→21:27)
[2022-09-09] MEDS: ALBUTEROL SULFATE HFA 90 MCG/PUFF 8 GM INHALER IH PRN (02:54)
[2022-09-09] MEDS: IBUPROFEN 400 MG TABLET PO PRN (05:54)
[2022-09-09 08:06] LABS: HEPATITIS C AB (EIA) <0.1 s/co ratio (0.0-0.9); HIV 1-2 SCREEN 4TH GEN W/RFLX Non Reactive (Non Reactive)
[2022-09-09 08:09] VITALS: BP 134/85
[2022-09-09] MEDS: PRENATAL NO.137/IRON/FOLIC ACID TABLET PO SCH (10:54)
[2022-09-09] MEDS: RisperiDONE 2 MG TABLET PO SCH ×2 (10:54→20:11)
[2022-09-09] MEDS: OMEGA-3/DHA/EPA/FISH OIL 1,000 MG CAPSULE PO SCH (10:54)
[2022-09-09] MEDS: CarBAMazepine 200 MG TABLET PO SCH ×3 (10:54→16:10)
[2022-09-09 12:10] VITALS: BP 130/78
[2022-09-09] MEDS: ACETAMINOPHEN 325 MG TABLET PO PRN ×2 (12:16→23:20)
[2022-09-09 21:42] VITALS: BP 156/88
[2022-09-09 23:15] VITALS: BP 137/86
[2022-09-09] MEDS: ZOLPIDEM TARTRATE 10 MG TABLET PO PRN (23:20)
[2022-09-10 00:20] VITALS: BP 138/89
[2022-09-10] MEDS: HALOPERIDOL 5 MG TABLET PO PRN (01:37)
[2022-09-10] MEDS: ALBUTEROL SULFATE HFA 90 MCG/PUFF 8 GM INHALER IH PRN ×2 (01:37→08:43)
[2022-09-10] MEDS: IBUPROFEN 400 MG TABLET PO PRN ×2 (03:21→11:51)
[2022-09-10] MEDS: HydrOXYzine PAMOATE 50 MG CAPSULE PO PRN ×2 (03:21→08:40)
[2022-09-10] MEDS: FLUTICASONE PROPIONATE 50 MCG/SPRAY 16 GM NASAL SPRAY NASAL PRN (05:01)
[2022-09-10 08:10] VITALS: BP 124/86
[2022-09-10] MEDS: PRENATAL NO.137/IRON/FOLIC ACID TABLET PO SCH (08:21)
[2022-09-10] MEDS: RisperiDONE 2 MG TABLET PO SCH (08:22)
[2022-09-10] MEDS: CarBAMazepine 200 MG TABLET PO SCH ×2 (08:22→12:41)
[2022-09-10] MEDS: OMEGA-3/DHA/EPA/FISH OIL 1,000 MG CAPSULE PO SCH (08:22)
[2022-09-10] MEDS ORDERED: RISP1TAB48 PO (10:15)
[2022-09-10] MEDS ORDERED: OMEG-135 PO (10:25)
[2022-09-10] MEDS ORDERED: RISP2TAB86 PO (10:25)
[2022-09-10] MEDS ORDERED: CARB200T6 PO (10:25)
[2022-09-10] MEDS ORDERED: PREN-217 PO (10:25)
== END 2022-09-10 15:47 | disposition home or self-care (01) | DRG 753 ==
LOC: EMS 16:43 → B3A 20:13
PROVIDERS: ADMIT Psychiatry & Neurology Psychiatry; ATTEND Psychiatry & Neurology Psychiatry
DX: F31.2 Bipolar disorder, current episode manic severe with psychotic features (principal); E78.5 Hyperlipidemia, unspecified; Z20.822 Contact with and (suspected) exposure to COVID-19; J45.909 Unspecified asthma, uncomplicated; K21.9 Gastro-esophageal reflux disease without esophagitis; E87.6 Hypokalemia; Z88.8 Allergy status to other drugs, medicaments and biological substances; Z79.899 Other long term (current) drug therapy
CPT/HCPCS: 80053; 80074; 81003; 84132; 84702; 85025; 87389; 99285; G0480; J1200; J1630; J2060; J3535